=== PATIENT | female | born 1990 | race Hispanic/Latino ===

== ENCOUNTER 2017-10-20 13:11 | Emergency (ER) | payer OTHER ==
[2017-10-20 13:44] VITALS: BP 127/79; PULSE 120; RESP 20; TEMP 98; O2SAT 98
--- NOTE | 2017-10-20 14:18 | ED PDOC ---
HPI: Trauma/Fall - HPI Time Seen by Provider: 10/20/17 13:43 Chief Complaint (Nursing): Back Pain Chief Complaint (Provider): Back Pain History Per: Patient History/Exam Limitations: no limitations Onset/Duration Of Symptoms: Hrs (last night) Injury Occurred (Timing): Hours Ago: (last night) Location Of Injury: Posterior: Back (lower back) Additional Complaint(s): 27 year old female presents to ED with complaints of traumatic back pain since last night and has no relevant past medical history. Patient states that she slipped and fell last night and initially landed in a sitting position before falling back. Notes that upon falling back, patient struck her lower back onto a step. (-) head injury, numbness, tingling, or other injury, abdominal/pelvic trauma, vaginal bleeding, abdominal/pelvic pain. Denies numbness, tingling ( contrary to triage note). PCP: Non [facility] Provider, - Fall Fall:Prior To Injury: Slipped Past Medical History Reviewed: Historical Data, Nursing Documentation, Vital Signs Vital Signs: Last Vital Signs Temp 98 F 10/20/17 13:43 Pulse 120 H 10/20/17 13:43 Resp 20 10/20/17 13:43 BP 127/79 10/20/17 13:43 Pulse Ox 98 10/20/17 18:24 - Medical History PMH: No Chronic Diseases - Family History Family History: States: No Known Family Hx - Living Arrangements Living Arrangements: With Family - Home Medications Home Medications: Ambulatory Orders Medication Instructions Recorded Cyclobenzaprine [Cyclobenzaprine 10 mg PO Q8 PRN #10 tab 10/20/17 HCl] - Allergies Allergies/Adverse Reactions: Allergies Allergy/AdvReac Type Severity Reaction Status Date / Time Sulfa (Sulfonamide Allergy RASH Verified 10/20/17 13:45 Antibiotics) Review of Systems ROS Statement: Except As Marked, All Systems Reviewed And Found Negative Musculoskeletal: Positive for: Back Pain Neurological: Negative for: Numbness ((-) numbness or tingling) Physical Exam - Reviewed Nursing Documentation Reviewed: Yes Vital Signs Reviewed: Yes - Physical Exam Appears: Positive for: No Acute Distress Head Exam: Positive for: ATRAUMATIC, NORMOCEPHALIC Skin: Positive for: Normal Color, Warm, Dry Neck: Positive for: Normal, Painless ROM, Supple Back: Positive for: Vertebral Tenderness (mild midline lumbar spine tenderness) , Other (minimal ecchymosis). Negative for: Normal Inspection, L CVA Tenderness , R CVA Tenderness, Decreased ROM (full ROM) Extremity: Positive for: Normal ROM, Other (lower extremity 5/5 strength bilaterally). Negative for: Deformity Neurologic/Psych: Positive for: Alert, Oriented, Gait (steady, unassisted). Negative for: Motor/Sensory Deficits - Laboratory Results Urine POC: Positive - ECG O2 Sat by Pulse Oximetry: 98 (RA) Pulse Ox Interpretation: Normal Medical Decision Making Medical Decision Makin Initial impression: back injury Initial plan: * HCG, QUALITATIVE 1400 UPreg: positive 1416 * Flexeril 10mg PO * Tylenol 650mg PO * Re-eval [address] was going to be ordered, but due to status, XR was offered to patient instead. Patient refuses both CT and XR. Provider informed patient that fracture or spinal cord injury cannot be ruled out without imaging , but patient still refused due to radiation risk. Pt.'s last LMP was "6 months ago." States she is irregular. Further state she performed a home test on Sunday and was negative. Scribe Attestation: Documented by Gertrude Proctor, acting as a scribe for Mumtaz Cortes PA-C. Provider Scribe Attestation: All medical record entries made by the Scribe were at my direction and personally dictated by me. I have reviewed the chart and agree that the record accurately reflects my personal performance of the history, physical exam, medical decision making, and the department course for this patient. I have also personally directed, reviewed, and agree with the discharge instructions and disposition. Disposition - Clinical Impression Clinical Impression: Back pain - Patient ED Disposition Is Patient to be Admitted: No - Disposition Referrals: Jasmine Velasquez [Outside] Disposition: Routine/Home Disposition Time: 15:31 Condition: STABLE Prescriptions: Cyclobenzaprine [Cyclobenzaprine HCl] 10 mg PO Q8 PRN #10 tab PRN Reason: Muscle Spasm Instructions: Acute Low Back Pain (ED), First Trimester (ED) Forms: [employer] (Maltese) Print Language: MAORI
== END 2017-10-20 15:45 | disposition home or self-care (01) ==
LOC: H.ER 13:11
DX: S39.92XA Unspecified injury of lower back, initial encounter (principal); W01.0XXA Fall on same level from slipping, tripping and stumbling without subsequent striking against object, initial encounter; Y92.89 Other specified places as the place of occurrence of the external cause; Z33.1 Pregnant state, incidental

== ENCOUNTER 2017-11-08 08:27 | Emergency (ER) | payer OTHER ==
[2017-11-08 09:04] VITALS: TEMP 98
[2017-11-08] MEDS ORDERED: Sodium Chloride 0.9% 1,000 ML IV STA (10:08)
--- NOTE | 2017-11-08 10:38 | ED PDOC ---
HPI: Female Pain Time Seen by Provider: 11/08/17 08:53 Chief Complaint (Nursing): Abdominal Pain Chief Complaint (Provider): Pelvic pain History Per: Patient History/Exam Limitations: no limitations Onset/Duration Of Symptoms: Days (1) Additional Complaint(s): Pt @ 5 weeks presents with pelvic pain that started while having intercourse this AM, associated with nausea and vomiting. Denies vaginal bleeding, fever. Abnormal Vaginal Bleeding: No Past Medical History Reviewed: Nursing Documentation, Vital Signs Vital Signs: Last Vital Signs Temp 98.0 F 11/08/17 09:03 Pulse 88 11/08/17 09:03 Resp 16 11/08/17 09:03 BP 107/67 11/08/17 09:03 Pulse Ox 100 11/08/17 09:03 - Medical History PMH: No Chronic Diseases - Surgical History Surgical History: No Surg Hx - Family History Family History: States: Unknown Family Hx - Living Arrangements Living Arrangements: With Family - Social History Current smoker - smoking cessation education provided: No Alcohol: None - Home Medications Home Medications: Ambulatory Orders Medication Instructions Recorded Cyclobenzaprine [Cyclobenzaprine 10 mg PO Q8 PRN #10 tab 10/20/17 HCl] - Allergies Allergies/Adverse Reactions: Allergies Allergy/AdvReac Type Severity Reaction Status Date / Time Sulfa (Sulfonamide Allergy RASH Verified 10/20/17 13:45 Antibiotics) Review of Systems Constitutional: Negative for: Fever, Chills Cardiovascular: Negative for: Chest Pain, Palpitations Respiratory: Negative for: Cough, Shortness of Breath Gastrointestinal: Positive for: Nausea, Vomiting, Abdominal Pain. Negative for : Diarrhea Genitourinary Female: Negative for: Dysuria, Hematuria, Vaginal Discharge, Vaginal Bleeding Musculoskeletal: Negative for: Neck Pain, Back Pain Skin: Negative for: Rash, Lesions Neurological: Positive for: Dizziness. Negative for: Weakness, Numbness, Headache Physical Exam - Reviewed Nursing Documentation Reviewed: Yes Vital Signs Reviewed: Yes - Physical Exam Appears: Positive for: Well, No Acute Distress Skin: Positive for: Normal Color, Warm, Dry Eye Exam: Positive for: Normal appearance, EOMI, PERRL Cardiovascular/Chest: Positive for: Regular Rate, Rhythm Respiratory: Positive for: Normal Breath Sounds Gastrointestinal/Abdominal: Positive for: Bowel Sounds, Soft, Tenderness (BLQ (> RLQ)). Negative for: Distended, Guarding, Rebound Extremity: Positive for: Normal ROM Neurologic/Psych: Positive for: Alert, Oriented - Laboratory Results Result Diagrams: 11/08/17 10:30 11/08/17 10:30 - ECG O2 Sat by Pulse Oximetry: 100 Medical Decision Making Medical Decision Makin yo with pelvic pain. - labs - pelvic ultrasound - IVF - Reglan - Tylenol 13:00 --Discussed case with Dr. Patterson, tell patient to follow up on next scheduled appointment. 13:25 Pt feels much better, no pain. Disposition - Clinical Impression Clinical Impression: Abdominal pain during - Disposition Referrals: Ji Patterson DO [Staff Provider] - Disposition: Routine/Home Disposition Time: 13:23 Condition: STABLE Additional Instructions: FOLLOW-UP WITH DR. PATTERSON ON YOUR NEXT SCHEDULED APPOINTMENT. TAKE TYLENOL NEEDED FOR PAIN. Instructions: Acute Pelvic Pain Forms: [employer] ([place]), [facility] ED School/Work Excuse
[2017-11-08 10:42] LABS: BASO # 0.1 K/uL (0.0-0.2); BASO % 0.8 % (0.0-2.0); EOS % 0.4 % (0.0-4.0); HEMOGLOBIN 13.3 g/dL (12.0-16.0); LYMPH # 1.4 K/uL (1.0-4.3); MEAN CELL VOLUME 89.7 fl (81.0-99.0); MEAN CORPUSCULAR HEMOGLOBIN 31.1 pg (27.0-31.0); MEAN CORPUSCULAR HGB CONC 34.7 g/dL (33.0-37.0); MEAN PLATELET VOLUME 7.1 fl (7.2-11.7); MONO # 0.5 K/uL (0.0-0.8); MONO % 5.6 % (0.0-10.0); NEUT # 7.7 K/uL (1.8-7.0); NEUT % 79.2 % (50.0-75.0); NRBC % 0.1 % (0.0-0.0); RBC 4.26 Mil/uL (3.80-5.20); RED CELL DISTRIBUTION WIDTH 12.8 % (11.5-14.5); WHITE BLOOD COUNT 9.7 K/uL (4.8-10.8)
[2017-11-08 10:43] LABS: SQUAMOUS EPITHIAL < 1 /hpf (0-5); URINE BACTERIA RARE (<OCC); URINE BILIRUBIN NEGATIVE (NEGATIVE); URINE BLOOD NEGATIVE (NEGATIVE); URINE CLARITY CLOUDY (Clear); URINE COLOR YELLOW (YELLOW); URINE GLUCOSE (UA) NEG (Normal); URINE LEUKOCYTE ESTERASE NEG Leu/uL (Negative); URINE NITRATE NEGATIVE (NEGATIVE); URINE PROTEIN NEGATIVE (NEGATIVE); URINE UROBILINOGEN 0.2-1.0 mg/dL (0.2-1.0)
[2017-11-08 10:56] LABS: ALB/GLOB RATIO 1.5 (1.0-2.1)
[2017-11-08 10:58] LABS: ALBUMIN 4.3 g/dL (3.5-5.0); ALT/SGPT 32 U/L (9-52); AST/SGOT 22 U/L (14-36); BLOOD UREA NITROGEN 9 mg/dl (7-17); CALCIUM 9.2 mg/dL (8.4-10.2); GFR AFRICAN-AMERICAN > 60; GFR NON-AFRICAN AMERICAN > 60
--- NOTE | 2017-11-08 13:00 | US ---
PROCEDURE: First trimester ultrasound Beta HCG results: 60714. HISTORY: Bilateral lower quadrant pain COMPARISON: None TECHNIQUE: Standard protocol for this study/examination. FINDINGS: LMP: 09/04/2017 Prior examinations from the current : None TECHNIQUE: Real-time 2D imaging, duplex and color Doppler. FINDINGS: Cardiac activity: Present Rate: 120 BPM Measurements: Currie rump length: 0.42 cm Gestational age based on CRL 6 weeks 1 day Gestational age 5 weeks 6 days based on gestational sac measurement 1.61 cm Gestational age derived from LMP: 10 weeks 5 days DIPIKA based on LMP: 06/01/2018 DIPIKA based on biometry: 07/04/2018 Gestational concordance documented Yolk sac identified Uterus: Unremarkable. No Cervical abnormalities: Negative examination for cervical dilatation or effacement. Closed cervix measuring 4.25 cm Subchorionic hemorrhage: None UTERUS: 6.2 x 4.2 x 8.6 cm. ADNEXA: Right: 2.6 x 4.7 x 5.6 cm. Complex cyst 2.2 x 4.8 x 4.9 Normal Doppler arterial waveform documented. Left: 2 x 1.2 x 2.7 cm. Multiple subcentimeter follicles. Normal Doppler arterial waveform documented Fluid in the cul-de-sac: Present IMPRESSION: Six weeks live intrauterine gestation. Five weeks discordance with gestational age derived from LMP.
[2017-11-08 13:35] VITALS: BP 118/78; PULSE 70; RESP 18
[2017-11-14 23:37] VITALS: O2SAT 100
== END 2017-11-08 14:00 | disposition home or self-care (01) ==
LOC: H.ER 08:27
DX: O26.891 Other specified pregnancy related conditions, first trimester (principal); Z3A.01 Less than 8 weeks gestation of pregnancy; O21.9 Vomiting of pregnancy, unspecified
CPT/HCPCS: 76815; 76817; 80053; 81003; 81025; 84702; 85025; 96374; 99283; J2765; J7040

== ENCOUNTER 2018-05-07 12:13 | Inpatient (IN) | payer OTHER ==
[2018-05-07 13:01] VITALS: BMI 26.6
--- NOTE | 2018-05-07 13:09 | OBHP ---
Datetime: 05/07/2018 13:00 IP Adm Impression: , intrauterine ; No Active Labor; Intact Membranes IP Admit Plan: Observation/Evaluation Admit Comment, IP Provider: IUOP at 32w c/o lower abd cramping since this am...on and off. No SROM; no VB; +FM PNC: Dr Patterson - CP - chart rev'd PMH: denies PSH: Tonillectomy/molar removed Allergy: Sulfa POBGYNH: No STD; G1 PSoH: denies smoking ETOH drugs A; IUP at 32w abd cramping threatened PTL PLAN: check UA/FFN/monitor for CTX Pelvic Type - PN: Adequate Extremities - PN: Normal Abdomen - PN: Normal Back - PN: Normal Breast - PN: Not Done Lungs - PN: Normal Heart - PN: Normal Thyroid - PN: Normal Neurologic - PN: Normal HEENT - PN: Normal General - PN: Normal Presentation-Admit: Vertex FHR - Baseline A Provider: 140 Membranes, Provider: Intact Pool Provider: Negative IP Hx Assessment: The History has been Reviewed and is Current EGA AdmitDate IP: 33.0 IP Chief Complaint: Uterine contractions NICHD Variability Prov Fetus A: Moderate 6-25bpm NICHD Accel Fetus A IP Provider: 15X15 FHR Category Provider Fetus A: Category I NICHD Decel Fetus A IP Provider: None Dilatation, Provider: 0 Genitourinary Exam: Normal DTRs - PN: Normal
[2018-05-07 13:21] LABS: SQUAMOUS EPITHIAL 1 /hpf (0-5); URINE BILIRUBIN NEGATIVE (NEGATIVE); URINE BLOOD NEGATIVE (NEGATIVE); URINE CLARITY CLEAR (Clear); URINE COLOR COLORLESS (YELLOW); URINE GLUCOSE (UA) NEG (Normal); URINE LEUKOCYTE ESTERASE NEG Leu/uL (Negative); URINE PROTEIN NEGATIVE (NEGATIVE); URINE UROBILINOGEN 0.2-1.0 mg/dL (0.2-1.0)
[2018-05-07] MEDS ORDERED: AMPicillin 2 GM in Sodium Chloride 0.9% 100 ML IVPB ONE (15:06)
[2018-05-07] MEDS ORDERED: Betamethasone Soluspan 30 mg/5mL Inj Susp IM ONE (15:08)
[2018-05-07] MEDS ORDERED: Magnesium Sulfate 4 gm/100 ml 4 GM/100 ML BAG IV ONE (15:10)
[2018-05-07] MEDS ORDERED: Magnesium Sul 40GM/1L SW 40 GM/1,000 ML ML IV ONE (15:11)
--- NOTE | 2018-05-07 15:21 | OBADHP ---
Datetime: 05/07/2018 15:00 Admit Comment, IP Provider: IUOP at 32w c/o lower abd cramping since this am...on and off. No SROM; no VB; +FM PNC: Dr Patterson - CP - chart rev'd PMH: denies PSH: Tonillectomy/molar removed Allergy: Sulfa POBGYNH: No STD; G1 PSoH: denies smoking ETOH drugs A; IUP at 32w abd cramping threatened PTL PLAN UA neg FFN + Discussion with pt about condition and treatment optoins. she undertood. MFM consulted and will star betamethasone, MgSO4 for neuro protection, and Ampicillin. MAHNDO Pelvic Type - PN: Adequate Extremities - PN: Normal Abdomen - PN: Normal Back - PN: Normal Breast - PN: Not Done Lungs - PN: Normal Heart - PN: Normal Thyroid - PN: Normal Neurologic - PN: Normal HEENT - PN: Normal General - PN: Normal FHR - Baseline A Provider: 135 Membranes, Provider: Intact Contraction Comments Provider: + Pool Provider: Negative IP Hx Assessment: The History has been Reviewed and is Current IP Chief Complaint: Uterine contractions NICHD Variability Prov Fetus A: Moderate 6-25bpm NICHD Accel Fetus A IP Provider: 15X15 FHR Category Provider Fetus A: Category I NICHD Decel Fetus A IP Provider: None Dilatation, Provider: 0 Genitourinary Exam: Normal DTRs - PN: Normal EGA AdmitDate IP: 33.0 IP Adm Impression: , intrauterine ; No Active Labor; Intact Membranes IP Admit Plan: Admit to unit; Initiate labor protocol Datetime: 05/07/2018 13:00 Presentation-Admit: Vertex
[2018-05-07] MEDS: Lactated Ringer's 1,000 ML IV SCH (15:45)
[2018-05-07] MEDS: AMPicillin 1 GM in Sodium Chloride 0.9% 100 ML IVPB SCH (20:09)
[2018-05-08] MEDS: AMPicillin 1 GM in Sodium Chloride 0.9% 100 ML IVPB SCH ×2 (00:26→04:33)
[2018-05-08] MEDS ORDERED: Betamethasone Soluspan 30 mg/5mL Inj Susp IM ONE (04:00)
[2018-05-08] MEDS: Lactated Ringer's 1,000 ML IV SCH (04:31)
--- NOTE | 2018-05-08 08:55 | OBDCSUM ---
Datetime: 05/08/2018 08:20 Discharged to, Provider: Home Follow up at, Provider: Dr Leonardo Mercado Instr Activity: Normal activity; Bedrest; May be up to bathroom Disch Instr Diet: Regular Discharge Instructions, Provider: Routine instructions given Discharge Time: 05/08/2018 08:30 Follow up in weeks, Provider: 1w Disch Referrals: None Contraception discussed, Prov: Yes Disch Activity Restrictions: No exercising; No lifting; No driving; Nothing in vagina - [place], tampons, douche Discharge Diagnosis Prov Other: threatened PTL
[2018-05-08 10:05] LABS: BASO # 0.1 K/uL (0.0-0.2); BASO % 0.5 % (0.0-2.0); EOS # 0.1 K/uL (0.0-0.7); EOS % 1.3 % (0.0-4.0); HEMOGLOBIN 12.4 g/dL (12.0-16.0); LYMPH # 2.2 K/uL (1.0-4.3); LYMPH % 21.9 % (20.0-40.0); MEAN CELL VOLUME 94.6 fl (81.0-99.0); MEAN CORPUSCULAR HEMOGLOBIN 32.3 pg (27.0-31.0); MEAN CORPUSCULAR HGB CONC 34.2 g/dL (33.0-37.0); MEAN PLATELET VOLUME 8.4 fl (7.2-11.7); MONO # 0.7 K/uL (0.0-0.8); MONO % 7.6 % (0.0-10.0); NEUT # 6.7 K/uL (1.8-7.0); NEUT % 68.7 % (50.0-75.0); NRBC % 0.2 % (0.0-0.0); RBC 3.84 Mil/uL (3.80-5.20); WHITE BLOOD COUNT 9.8 K/uL (4.8-10.8)
[2018-05-09 11:40] VITALS: BP 104/57; PULSE 91; RESP 18; TEMP 98.2; O2SAT 98
== END 2018-05-08 08:30 | disposition home or self-care (01) | DRG 778 ==
LOC: H.EROB2 12:13 → H.L&D 15:06
PROVIDERS: ADMIT Obstetrics & Gynecology; ATTEND Obstetrics & Gynecology
PROC: 4A1HXCZ Monitoring of Products of Conception, Cardiac Rate, External Approach (ICD-10-PCS; principal; 2018-05-07)
DX: O60.03 Preterm labor without delivery, third trimester (principal); Z3A.32 32 weeks gestation of pregnancy

== ENCOUNTER 2018-06-06 11:35 | Inpatient (IN) | payer OTHER ==
[2018-06-06 12:12] VITALS: BMI 26.7
[2018-06-06] MEDS: Lactated Ringer's 1,000 ML IV SCH (13:30)
[2018-06-06] MEDS ORDERED: Lactated Ringer's 1,000 ML IV ONE (13:35)
[2018-06-06 14:59] LABS: BASO % 0.3 % (0.0-2.0); EOS # 0.1 K/uL (0.0-0.7); EOS % 1.4 % (0.0-4.0); HEMOGLOBIN 12.4 g/dL (12.0-16.0); LYMPH # 1.7 K/uL (1.0-4.3); LYMPH % 20.2 % (20.0-40.0); MEAN CELL VOLUME 91.8 fl (81.0-99.0); MEAN CORPUSCULAR HEMOGLOBIN 32.1 pg (27.0-31.0); MEAN PLATELET VOLUME 7.9 fl (7.2-11.7); MONO # 0.8 K/uL (0.0-0.8); MONO % 8.9 % (0.0-10.0); NEUT % 69.2 % (50.0-75.0); RBC 3.85 Mil/uL (3.80-5.20); RED CELL DISTRIBUTION WIDTH 13.8 % (11.5-14.5); WHITE BLOOD COUNT 8.6 K/uL (4.8-10.8)
--- NOTE | 2018-06-07 08:55 | OBHP ---
Datetime: 06/06/2018 14:30 IP Adm Impression: , intrauterine ; Ruptured Membranes IP Admit Plan: Admit to unit Admit Comment, IP Provider: 27 y/o , 36.6 wks based on 1st trimester US, with DIPIKA of 06/28/18 pre sents to [facility] with suspected rupture of membrane and vaginal bleeding. Patient noticed gush of fluids coming out 6 am this morning which was clear, slight yellowish vaginal fluid. She also noticed brigh t red vaginal bleeding 1 hr ago while comign to hospital. Diarrhea x 4 in last 4 hours. Irregular low er abdominal pressure and contractions. Denies any fever, chills, nauesa, vomiting, dysuria. Last sexual activity 5 days ago. PNC:Dr. Patterson course: FFN + at 32 wks, Received betamethazone x 2, Mgso4 and ampicillin. Last US: 05/30/18: FHR 149, Cephalic, Placenta anterior, KLAUS: 22, BPP 8/8 PObHx: None PGynHx: Denies STIs or Abn paps PMHx: None PSHx: Tonsillectomy and adenoidectomy Allergies: Sulfa-hives Social Hx: Denies alcohol/smoking/drugs F/H: Thyroid disease-mother PE: General: No acute distress Heart: RRR, S1S2 present, No murmurs Lungs: CTA B/L, No wheeze Abdomen: Gravid, NT Ext: No pedal edema, calf tenderness SSE: No active vaginal bleeding, No pooling, + Nitrazine test A/P: 27 y/o , 36.6 wks based on 1st trimester US, with DIPIKA of 06/28/18 presents to [facility] with smith spected rupture of membrane and vaginal bleeding. - Suspected rupture of membrane - labor - EFM and [place] monitoring - + Nitrazine test - NST reactive, Moderate variability, accelerelation, No decels - Irregular contractions on [place] - Not in active labor, ruptured membranes - GBS status unknown - Will admit patient to unit - Cervidil placed @14.30 - CBC, RPR, type and match Marcus Vaughn, PGY1 Addendum: I saw exam patient presentation. Patient with amniotic fluid visualized from cervical os with Vals carr. Nitrazine test positive. Bedside ultrasound confirmed vertex presentation. Cervix closed. Discu ssed with patient general information regarding PPROM. Recommended induction of labor due to PPROM. A ll patient questions answered. Cervidil placed vaginally. heart tracing category 1. [place] Presentation-Admit: Vertex FHR - Baseline A Provider: 130s Membranes, Provider: Ruptured Contraction Comments Provider: irregular Comments, ACOG Physical Exam: General: No acute distress Heart: RRR, S1S2 present, No murmurs Lungs: CTA B/L, No wheeze Abdomen: Gravid, NT Ext: No pedal edema, calf tenderness SSE: No active vaginal bleeding, No pooling, + Nitrazine test IP Hx Assessment: The History has been Reviewed and is Current EGA AdmitDate IP: 36.6 Vital Signs Provider: Reviewed; Within Normal Limits IP Chief Complaint: Suspected ruptured membranes; Vaginal bleeding NICHD Variability Prov Fetus A: Moderate 6-25bpm NICHD Accel Fetus A IP Provider: 15X15 FHR Category Provider Fetus A: Category I NICHD Decel Fetus A IP Provider: None Dilatation, Provider: 0 Datetime: 05/08/2018 08:30 Pool Provider: Negative Effacement, Provider: 0 Datetime: 05/07/2018 15:00 Pelvic Type - PN: Adequate Extremities - PN: Normal Abdomen - PN: Normal Back - PN: Normal Breast - PN: Not Done Lungs - PN: Normal Heart - PN: Normal Thyroid - PN: Normal Neurologic - PN: Normal HEENT - PN: Normal General - PN: Normal Genitourinary Exam: Normal DTRs - PN: Normal
[2018-06-07] MEDS ORDERED: Oxytocin 30 UNIT 30 UNITS/500 ML BAG IV ONE (10:25)
[2018-06-07] MEDS ORDERED: Penicillin G 5 Million Unit Vial IVPB ONE (10:52)
[2018-06-07] MEDS: Lactated Ringer's 1,000 ML IV SCH (11:30)
--- NOTE | 2018-06-07 11:36 | OBPN ---
Datetime: 06/07/2018 10:10 IP Progress Impression: Reassuring heart rate; Reactive non-stress test IP Informed Consent Obtain: Vaginal Delivery; Risks, Benefits and Alternatives Discussed IP Progress Plan: Induction; Anticipate Vaginal Delivery Pool Provider: Positive Membranes, Provider: Ruptured FHR - Baseline A Provider: 120 Presentation-Admit: Vertex IP Progress Note Comment: OB Hospitalist on-call. Sign out rec'd...after she came to office she was sent to [facility] and evaluated fro SORM - gross pool ing. Cervidil placed and removed. She feels occ ctx SVE 1-2cm Early labor 36w SROM/>24h/ PLAN: Discusssion with patient about condition...will stat PCN and Pitocin NICHD Accel Fetus A IP Provider: 15X15 FHR Category Provider Fetus A: Category I NICHD Variability Prov Fetus A: Moderate 6-25bpm Dilatation, Provider: 1-2 Effacement, Provider: 50 Station, Provider: -2 NICHD Decel Fetus A IP Provider: None Datetime: 06/06/2018 14:30 Contraction Comments Provider: irregular Vital Signs Provider: Reviewed; Within Normal Limits
--- NOTE | 2018-06-07 19:51 | OBPN ---
Datetime: 06/07/2018 19:30 IP Progress Note Comment: OB Hospitaliston-call...Notified that she wanted Pitocin shut off to eat d inner. Earlier, I had discussed prolonged ROM, risks/complications, labor, medications and NPO stat us. She understood. Se finished eating and will re-examine later. She is with FOB and her parents. She is in good spirits FHR Category Provider Fetus A: Category I
--- NOTE | 2018-06-08 03:35 | OBPN ---
Datetime: 06/07/2018 21:30 IP Progress Impression: Reassuring heart rate IP Progress Plan: Induction IP Progress Note Comment: She ate dinner and felt better. She feels no CTX since stopping Pitocin. Continued IOL discussed and she agree to continued with Cytotec 50mcg po q 4h. FHR Category Provider Fetus A: Category I
[2018-06-08] MEDS: Lactated Ringer's 1,000 ML IV SCH ×2 (07:30→11:10)
--- NOTE | 2018-06-08 08:08 | OBPN ---
Datetime: 06/08/2018 07:35 IP Progress Impression: Reassuring heart rate; Reactive non-stress test IP Informed Consent Obtain: Vaginal Delivery IP Progress Plan: Augmentation; Anticipate Vaginal Delivery Membranes, Provider: Ruptured Amniotic Fluid Color, Provider: Clear Contraction Comments Provider: ireg Presentation-Admit: Vertex IP Progress Note Comment: She felt more CTX last night after 1am dose of Cytotec. She still felt l eaking. SVE 2cm - Bulging / SROM - large amt fluid Will start pitoicn FHR Category Provider Fetus A: Category I Dilatation, Provider: 2 Effacement, Provider: 50 Station, Provider: -1
[2018-06-08] MEDS ORDERED: Fentanyl/Bupivacaine HCl 250 ML EPI ONE (11:20)
[2018-06-08] MEDS ORDERED: OXYTOCIN/0.9 % NS 20 UNIT/1,000 ML BAG IV ONE (11:53)
--- NOTE | 2018-06-08 15:06 | OBPN ---
Datetime: 06/08/2018 14:50 IP Progress Impression: Normal progression of labor; Reassuring heart rate; Reactive non-stres s test IP Informed Consent Obtain: Vaginal Delivery IP Progress Plan: Continue present management; Augmentation; Anticipate Vaginal Delivery Pool Provider: Positive Membranes, Provider: Ruptured Contraction Comments Provider: occ FHR - Baseline A Provider: 120 Presentation-Admit: Vertex IP Progress Note Comment: SHe re'c d epidural at 11am at 7cm. She feels pressure Second stage of labor PLAN: anticipate NICHD Accel Fetus A IP Provider: 15X15 FHR Category Provider Fetus A: Category I NICHD Variability Prov Fetus A: Moderate 6-25bpm Dilatation, Provider: 10 Effacement, Provider: 100 Station, Provider: 0 NICHD Decel Fetus A IP Provider: None
[2018-06-08] MEDS ORDERED: Oxytocin 30 UNIT 30 UNITS/500 ML BAG IV ONE (15:32)
[2018-06-08] MEDS: OXYTOCIN/0.9 % NS 20 UNIT/1,000 ML BAG IV ONE ×2 (16:00→16:05)
[2018-06-08] MEDS ORDERED: Oxycodone/Acetaminophen 5/325 mg Tab PO PRN (16:03)
[2018-06-08] MEDS ORDERED: Benzocaine/Menthol SPRAY TOP PRN (16:03)
--- NOTE | 2018-06-08 19:22 | OBDS ---
DELIVERY PERSONNEL Delivery Doctor: Teresa Patterson DO Databases Software Consultant: Nathalie Garcia RN Anesthesiologist: Juliano Thomas MD Resident: Dr. Vaughn MATERNAL INFORMATION Delivery Anesthesia: Local; Epidural Medications in Delivery: pitocin 30 units @ 999ml/hr Estimated Blood Loss (ml): 200 Placenta Cultured: No Maternal Complications: Other RN Comments: Prolonged rupture of membranes Provider Comments: Over intact perineum, of live male from cephalic presentation. PEDS called for prolonged ROM Infant was crying spontaneously, bulb suctioned, delayed cord clamp, and pl aced on mother's chest (skin to skin) after FOB cut cord. 9,9. Placenta was delivered intact spontaneously. EBL 200cc LABOR SUMMARY EDC: 06/28/2018 00:00 No. Babies in Womb: 1 Attempted: No Labor Anesthesia: Epidural LABOR INFORMATION Reason for Induction: Other Reason for Induction Other: PPROM Cervical Ripening Agents: Cytotec @ (Annotations: Cytotec 50mcg given ) Other Ripening Agents: cervidil, cytotec Oxytocin: Augmentation Group B Beta Strep: Not Done Antibiotics # of Doses: 7 Antibiotics Time of Last Dose: 1130 Steroids Given: Full Course Reason Steroids Not Administered: Not Applicable MEMBRANES Membranes Rupture Method: Spontaneous Rupture of Membranes: 06/06/2018 06:00 Length of Rupture (hrs): 57.35 Amniotic Fluid Color: Clear Amniotic Fluid Amount: Small Amniotic Fluid Odor: Normal STAGES OF LABOR Stage 3 hrs: 0 Stage 3 min: 11 VAGINAL DELIVERY Episiotomy: None Laceration Extension: N/A Laceration Type: Vaginal Other Laceration: bilateral labial laceration Laceration Repair: Yes Laceration Repair Note: Right labial laceratoin was repaired with 2.0 and 3.0 Vicryl Rapide sutures. Initial Vag Sponge Count: 10 Final Vag Sponge Count: 10 Initial Vag Sharps Count: 5 Final Vag Sharps Count: 5 Sponge Count Correct: Yes Sharps Count Correct: Yes Count Comment: 5 sutures one syringe two syringe needles 10 lap pads BABY A INFORMATION Infant Delivery Date/Time: 06/08/2018 15:21 Method of Delivery: Vaginal Born in Route : No : N/A Forceps: N/A Vacuum Extraction: N/A Shoulder Dystocia : No SHOULDER DYSTOCIA BABY A Infant Delivery Date/Time: 06/08/2018 15:21 PRESENTATION/POSITION BABY A Presentation: Cephalic Cephalic Presentation: Vertex Breech Presentation: N/A PLACENTA INFORMATION BABY A Placenta Delivery Time : 06/08/2018 15:32 Placenta Method of Delivery: Spontaneous Placenta Status: Delivered SCORES BABY A Heart Rate 1 min: >100 bpm Resp Effort 1 min: Good Cry Reflex Irritability 1 min: Cough or Sneeze or Pulls Away Muscle Tone 1 min: Active Motion Color 1 min: Body [place], Extremities Blue Resuscitation Effort 1 min: Tactile Stimulation SCORE 1 MIN: 9 Heart Rate 5 min: >100 bpm Resp Effort 5 min: Good Cry Reflex Irritability 5 min: Cough or Sneeze or Pulls Away Muscle Tone 5 min: Active Motion Color 5 min: Body [place], Extremities Blue Resuscitation Effort 5 min: Tactile Stimulation SCORE 5 MIN: 9 INFORMATION BABY A Gestational Age at Delivery: 37.0 Gestational Status: Term Outcome : Liveborn Infant Condition : Stable Infant Sex: Male IDENTIFICATION/MEDS BABY A ID Band Number: [id number] ID Band Location: Left Leg; Left Arm WEIGHT/LENGTH BABY A Infant Birthweight (gms): 3030 Weight (lb): 6 Weight (oz): 11 CORD INFORMATION BABY A No. Cord Vessels: 3 Nuchal Cord : Around Neck x1, Loose Cord Blood Taken: N/A Suction: None ASSESSMENT BABY A Complications: None Physical Findings at Delivery: Within Normal Limits Infant Respirations: Appears Normal Jacquard Card Cutter/ALS Called : No Care By: Smith Transferred To: Remains with Mother
[2018-06-09 04:58] LABS: BASO # 0.1 K/uL (0.0-0.2); BASO % 0.4 % (0.0-2.0); EOS # 0.2 K/uL (0.0-0.7); EOS % 1.4 % (0.0-4.0); HEMOGLOBIN 10.3 g/dL (12.0-16.0); LYMPH # 2.1 K/uL (1.0-4.3); LYMPH % 16.7 % (20.0-40.0); MEAN CORPUSCULAR HEMOGLOBIN 31.9 pg (27.0-31.0); MEAN CORPUSCULAR HGB CONC 34.3 g/dL (33.0-37.0); MEAN PLATELET VOLUME 7.8 fl (7.2-11.7); MONO # 1.3 K/uL (0.0-0.8); MONO % 10.6 % (0.0-10.0); NEUT # 8.8 K/uL (1.8-7.0); NEUT % 70.9 % (50.0-75.0); RBC 3.23 Mil/uL (3.80-5.20); RED CELL DISTRIBUTION WIDTH 13.9 % (11.5-14.5); WHITE BLOOD COUNT 12.4 K/uL (4.8-10.8)
--- NOTE | 2018-06-09 19:27 | OBPPN ---
Datetime: 06/09/2018 19:23 PP Pain Prov: Within normal limits PP Nausea Prov: Denies PP Flatus Prov: Yes PP Breasts Prov: Normal PP Heart Prov: Normal PP Lungs Prov: Normal PP Abdomen/Uterus Prov: Normal PP Lochia Prov: Normal PP Vulva/Perineum Prov: Normal PP CVA Tenderness Prov: Normal PP Extremities Prov: Normal PP C/S Incision Prov: Not Applicable PP Progress Prov: Normal PP Comments Phys Exam Prov: Abdomen soft, nontender, nondistended Uterus firm, below umbilicus No deep calf tenderness bilaterally PP Impression Prov: Normal progression PP Plan Prov: Continue present management PP Progress Note Prov: day 1 status post , patient recovering well Patient out of bed and ambulating Regular diet Pain control Anticipate discharge home tomorrow. IP PP Procedures: None Vital Signs Provider PP: Reviewed; Within Normal Limits
[2018-06-10] MEDS ORDERED: Varicella Virus Vaccine Inj SC ONE (08:13)
--- NOTE | 2018-06-10 08:14 | OBDCSUM ---
Datetime: 06/10/2018 08:12 Discharged to, Provider: Home Follow up at, Provider: [facility] Disch Instr Activity: Normal activity Disch Instr Diet: Regular Discharge Instructions, Provider: Routine instructions given Discharge Diagnosis, Provider: Term Delivered Follow up in weeks, Provider: 6w Disch Referrals: None Contraception discussed, Prov: Yes Datetime: 05/08/2018 08:20 Discharge Time: 06/10/2018 08:30 Follow up in weeks, Provider: i 4 to 6 weeks
--- NOTE | 2018-06-10 08:15 | OBPPN ---
Datetime: 06/10/2018 08:09 PP Pain Prov: Within normal limits PP Nausea Prov: Denies PP Flatus Prov: Yes PP BM Prov: Yes PP Breasts Prov: Normal PP Heart Prov: Normal PP Lungs Prov: Normal PP Abdomen/Uterus Prov: Normal PP Lochia Prov: Normal PP Vulva/Perineum Prov: Normal PP CVA Tenderness Prov: Normal PP Extremities Prov: Normal PP Progress Prov: Normal PP Impression Prov: Normal progression PP Plan Prov: Discharge PP Progress Note Prov: She feels fine. No problems. ready to go home H/H 10 A; S/P day 2 PLAN discahrge home and follow up in 6w
--- NOTE | 2018-06-10 08:16 | OBDCSUM ---
Datetime: 06/10/2018 08:12 Discharged to, Provider: Home Follow up at, Provider: [facility] Disch Instr Activity: Normal activity Disch Instr Diet: Regular Discharge Instructions, Provider: Routine instructions given Discharge Diagnosis, Provider: Term Delivered Follow up in weeks, Provider: 6w Disch Referrals: None Contraception discussed, Prov: Yes Discharge Comment, Provider: [facility] NonImmune - Varicella vaccein ordered Datetime: 05/08/2018 08:20 Discharge Time: 06/10/2018 08:30 Follow up in weeks, Provider: karen 4 to 6 weeks
[2018-06-10 19:03] VITALS: BP 116/80; PULSE 79; RESP 20; TEMP 98.4; O2SAT 100
== END 2018-06-10 13:45 | disposition home or self-care (01) | DRG 775 ==
LOC: H.EROB2 11:35 → H.L&D 13:36 → H.OB/GYN 06-08 18:15
PROVIDERS: ADMIT Obstetrics & Gynecology; ATTEND Obstetrics & Gynecology
PROC: 4A1HXCZ Monitoring of Products of Conception, Cardiac Rate, External Approach (ICD-10-PCS; 2018-06-07)
PROC: 10E0XZZ Delivery of Products of Conception, External Approach (ICD-10-PCS; principal; 2018-06-08)
PROC: 0HQ9XZZ Repair Perineum Skin, External Approach (ICD-10-PCS; 2018-06-08)
PROC: 3E0234Z Introduction of Serum, Toxoid and Vaccine into Muscle, Percutaneous Approach (ICD-10-PCS; 2018-06-10)
DX: O69.81X0 Labor and delivery complicated by cord around neck, without compression, not applicable or unspecified (principal); O63.1 Prolonged second stage (of labor); O70.0 First degree perineal laceration during delivery; Z37.0 Single live birth; Z3A.37 37 weeks gestation of pregnancy; Z23 Encounter for immunization; Z88.2 Allergy status to sulfonamides